=== PATIENT | female | born 1950 | race Caucasian/White ===

== ENCOUNTER 2018-02-25 12:19 | Inpatient (IN) ==
--- NOTE | 2018-02-25 12:54 | ED ---
HPI General Chief complaint: Urogenital-Female Stated complaint: Urinary Complaint Time Seen by Provider: 02/25/18 12:38 History of Present Illness HPI narrative: 67-year-old female with history of hypertension, diabetes, presents for evaluation. Patient is from [place]. 5 days ago she saw her primary care physician and she had her a prescription for lisinopril/ hydrochlorothiazide changed to olmesartan/hydrochlorothiazide because she had developed a chronic cough secondary to the lisinopril which she has been on for the past 2 years. Over the past few days she has been checking her blood pressure and initially after starting this new medication it was low ranging from 80/60 to 90/60. This was an asymptomatic hypotension. She was having no dizziness or lightheadedness. She reports that since yesterday morning she has been unable to make more than a small dribble of urine. She has also had some nausea. She is concerned that these are side effects of her new arb prescription. Symptoms are moderate. She is denying any chest pain, shortness of breath, dizziness, lightheadedness, abdominal pain, flank pain, fevers, chills, dysuria. No other complaints. Related Data Home Medications Medication Instructions Recorded Confirmed amlodipine 5 mg PO DAILY 02/25/18 02/25/18 atorvastatin 40 mg PO DAILY 02/25/18 02/25/18 ergocalciferol (vitamin D2) 50,000 unit PO QWEEK 02/25/18 02/25/18 [Vitamin D2] escitalopram oxalate 10 mg PO DAILY 02/25/18 02/25/18 metformin 2,000 mg PO QPM 02/25/18 02/25/18 olmesartan-hydrochlorothiazide 1 tab PO DAILY 02/25/18 02/25/18 Allergies Allergy/AdvReac Type Severity Reaction Status Date / Time amoxicillin [From Trimox] Allergy Rash Verified 02/25/18 12:45 Review of Systems ROS: all other systems reviewed are negative [facility] Medical History Medical History Depression (Acute) Diabetes (Acute) HTN (hypertension) (Acute) Hypercholesterolemia (Acute) Surgical History Surgical History History of ankle surgery (Acute) Hx of cholecystectomy (Acute) Hx of tonsillectomy (Acute) Social History Social History Substance History: No History of Abuse Smoking Status: Never smoker How Often Do You Have a Drink Containing Alcohol: Monthly or less Recent Travel in [facility] within the Last 8 Weeks: Yes Recent Out of Country Travel within the Last 8 Weeks: No Immunization History Tetanus Immunization: Unsure Exam Narrative Exam Narrative: GENERAL: Well-developed well-nourished female no acute distress SKIN: Warm and dry. HEAD: Atraumatic. Normocephalic. EYES: Pupils equal and round. No scleral icterus. No injection or drainage. ENT: No nasal bleeding or discharge. Mucous membranes pink and moist. NECK: Trachea midline. No JVD. CARDIOVASCULAR: Regular rate and rhythm. No murmur appreciated. RESPIRATORY: No accessory muscle use. Clear to auscultation. Breath sounds equal bilaterally. GASTROINTESTINAL: Abdomen soft, non-tender, nondistended. Hepatic and splenic margins not palpable. MUSCULOSKELETAL: No obvious deformities. No clubbing. No cyanosis. No edema. NEUROLOGICAL: Awake and alert. No obvious cranial nerve deficits. Motor grossly within normal limits. Normal speech. PSYCHIATRIC: Appropriate mood and affect; insight and judgment normal. Course Initial Documented Vital Signs Temperature 98.3 F 02/25/18 12:28 Pulse Rate 82 02/25/18 12:28 Respiratory Rate 14 02/25/18 12:28 Blood Pressure 109/64 02/25/18 12:28 Pulse Oximetry 94 L 02/25/18 12:28 Last Documented Vital Signs Temperature 98.3 F 02/25/18 12:28 Pulse Rate 82 02/25/18 12:28 Respiratory Rate 14 02/25/18 12:28 Blood Pressure 109/64 02/25/18 12:28 Pulse Oximetry 94 L 02/25/18 12:28 Medical Decision Making EUGENE Attestation EUGENE supervised visit: Yes Attestation: I, Dr. Smith, have reviewed the advance practice practitioner's documentation and am in agreement, met with the patient face to face, made the diagnosis, and the medical decision making was done by me. *My assessment and Findings: Patient is a 67-year-old female, here on vacation, who presents with complaint of decreased urine output after having her antihypertensives changed recently. She appears well and does not have any abdominal/flank pain. Bladder scan revealed that she was not retaining urine. Labs reveal an acute kidney injury with a slightly elevated BUN. She has been given 1 L normal saline bolus to see how she responds to this. She has been admitted for further evaluation and management. MDM Narrative Medical decision making narrative: An IV was established, the patient was given Zofran, lab work, urinalysis was obtained. According to the nurse the patient only made a small amount of urine for the sample. Postvoid residual was obtained revealing only 54 mL of urine in the bladder. Lab work is been reviewed. GFR is 21, BUN is 47, creatinine is 2.32, she has no history of renal dysfunction, this appears to be an acute kidney injury, IV fluid bolus has been initiated. The patient will be admitted for further treatment. Medical Screen Exam Complete: Yes Emergency Medical Condition: Yes Differential Diagnosis Differential Diagnosis: Acute kidney injury, urinary retention, cystitis, medication side effect Lab Data Result diagrams: 02/25/18 13:00 02/25/18 13:00 Lab Results 02/25/18 02/25/18 02/25/18 Range/Units 13:00 13:00 13:05 WBC 10.7 (4.0-11.0) th/mm3 RBC 4.70 (4.00-5.30) mil/mm3 Hgb 14.2 (11.6-15.3) gm/dL Hct 41.2 (35.0-46.0) % MCV 87.5 (80.0-100.0) fL MCH 30.3 (27.0-34.0) pg MCHC 34.6 (32.0-36.0) % RDW 14.2 (11.6-17.2) % Plt Count 214 (150-450) th/mm3 MPV 8.8 (7.0-11.0) fL Neut % (Auto) 79.0 H (16.0-70.0) % Lymph % (Auto) 10.7 (9.0-44.0) % [place] % (Auto) 8.4 H (0.0-8.0) % Eos % (Auto) 0.7 (0.0-4.0) % Baso % (Auto) 1.2 (0.0-2.0) % Neut # (Auto) 8.4 H (1.8-7.7) th/mm3 Lymph # (Auto) 1.1 (1.0-4.8) th/mm3 [place] # (Auto) 0.9 (0.0-0.9) th/mm3 Eos # (Auto) 0.1 (0.0-0.4) th/mm3 Baso # (Auto) 0.1 (0.0-0.2) th/mm3 WBC Differential . Differential Comment Auto diff final Sodium 140 (136-145) meq/L Potassium 4.1 (3.5-5.1) meq/L Chloride 104 (98-107) meq/L Carbon Dioxide 24.6 (21.0-32.0) meq/L Anion Gap 11 (5-15) meq/L BUN 47 H (7-18) mg/dL Creatinine 2.32 H (0.50-1.00) mg/dL Estimated GFR 21 L (>89) mL/min Random Glucose 150 H (74-106) mg/dL Calcium 9.5 (8.5-10.1) mg/dL Magnesium 2.0 (1.5-2.5) mg/dL Urine Color Yellow (Yellw/Straw) Urine Clarity Clear (Clear) Urine pH 5.0 (5.0-8.5) Ur Specific [place] 1.024 (1.002-1.035) Urine Protein 30 H (Neg-Trace) mg/dL Urine Glucose (UA) Negative (Negative) mg/dL Urine Ketones Negative (Negative) mg/dL Urine Occult Blood Negative (Negative) Urine Nitrate Negative (Negative) Urine Bilirubin Negative (Negative) Urine Urobilinogen Less than 2 (Less than 2) mg/dL Ur Leukocyte Esterase Negative (Negative) Urine RBC Less than 1 (0-3) /hpf Urine WBC 2 (0-5) /hpf Ur Squamous Epith Cells <1 (0-5) /hpf Hyaline Casts 6 (0-3) /lpf Granular Casts 15 (None) /lpf Urine Mucus Few H (Occasional) /lpf Micro UA Comment Culture not ind Ur Microscopic Review Not Reportable Urine Culture Comments Culture not ind Discharge Plan Discharge Disposition Patient Disposition: ED Admit(ED Internal Use Only) Discharge Condition Condition: Stable Discharge Order Discharge Orders: ED Use Only Admit Order (Routine); Ordered 02/25/18 Ordered By: Jose Martinez Discharge Details Diagnosis: Acute kidney injury Physicians Team ED Provider: Veronica Smith ED Midlevel Provider: Jose Martinez Primary Care Provider: UNKNOWN, Attending Provider: Carley Treviño Status ED Status: Admitted Patient
[2018-02-25 13:30] LABS: Baso # (Auto) 0.1 th/mm3 (0.0-0.2); Baso % (Auto) 1.2 % (0.0-2.0); Eos # (Auto) 0.1 th/mm3 (0.0-0.4); Eos % (Auto) 0.7 % (0.0-4.0); Hematocrit 41.2 % (35.0-46.0); Hemoglobin 14.2 gm/dL (11.6-15.3); Lymph # (Auto) 1.1 th/mm3 (1.0-4.8); Lymph % (Auto) 10.7 % (9.0-44.0); Mean Corpuscular HGB Conc 34.6 % (32.0-36.0); Mean Corpuscular Hemoglobin 30.3 pg (27.0-34.0); Mean Corpuscular Volume 87.5 fL (80.0-100.0); Mean Platelet Volume 8.8 fL (7.0-11.0); Mono # (Auto) 0.9 th/mm3 (0.0-0.9); Mono % (Auto) 8.4 % (0.0-8.0); Neut # (Auto) 8.4 th/mm3 (1.8-7.7); Platelet Count 214 th/mm3 (150-450); Red Cell Distribution Width 14.2 % (11.6-17.2); White Blood Count 10.7 th/mm3 (4.0-11.0)
[2018-02-25 13:32] LABS: Bilirubin,Urine Negative (Negative); Clarity,Urine Clear (Clear); Color,Urine Yellow (Yellw/Straw); Glucose,Urine (UA) Negative (Negative); Hyaline Casts,Urine 6 /lpf (0-3); Leukocyte Esterase,Urine Negative (Negative); Mucus,Urine Few /lpf (Occasional); Nitrite,Urine Negative (Negative); Specific Gravity,Urine 1.024 (1.002-1.035); Squamous Epithelial Cell,Urine <1 /hpf (0-5)
[2018-02-25 13:46] LABS: Calcium 9.5 mg/dL (8.5-10.1); Carbon Dioxide 24.6 meq/L (21.0-32.0); Potassium 4.1 meq/L (3.5-5.1)
[2018-02-25] MEDS ORDERED: Sod Chloride 0.9% Inj 1,000 ML IV.SIG SCH (14:00)
[2018-02-25] MEDS ORDERED: Dextrose 50% in Water 50 ML Vial IV.PUSH PRN (14:14)
--- NOTE | 2018-02-25 14:19 | P.HPIM ---
History of Present Illness Primary Care Physician: UNKNOWN Chief Complaint: ' I'm not able to urinate'. History of Present Illness: patient is a 67 y/o female with history of hypertension, diabetes who presented to ER after she hasn't been able to void the past 24 hrs. she says that she was on lisnopril/HCTZ - this was changed to Olmesartan/HCTZ recently because of the cough. she says that she's been on the train from [place]. she says that she hasn't voided since yesterday morning- except for ' just a few drops '. she says that she never had a problem with urination in the past. she had some nausea earlier which has resolved. she denies any abdominal pain and doesn't report any dysuria or hematuria. she denies any sob. Inpatient Certification: I certify that the inpatient services were ordered in accordance with Medicare regulations governing the order. This includes certification that hospital inpatient services are reasonable and necessary and in the case of services not specified as inpatient-only under 42 CFR 419.22(n), that they are appropriately provided as inpatient services in accordance to with the 2-midnight benchmark under 43 CFR 412.3(e) Review of Systems All other systems reviewed negative except as stated in HPI PMFSH - History History Provided By: Patient - Medical History Medical History: Medical History (Last Reviewed 02/25/18 @ 14:26 by Carley Treviño MD) Depression Diabetes HTN (hypertension) Hypercholesterolemia - Surgical History Surgical History: Surgical History (Last Reviewed 02/25/18 @ 14:26 by Carley Treviño MD) History of ankle surgery Hx of cholecystectomy Hx of tonsillectomy - Family History Family History: Family History (Last Updated 02/25/18 @ 14:26 by Carley Treviño MD) Other CHF (congestive heart failure) - Tobacco History Smoking Status: Never smoker - Alcohol History How Often Do You Have a Drink Containing Alcohol: Monthly or less - Substance Use History Substance History: No History of Abuse - Travel History Recent Travel in the [place] Within the Last 8 Weeks: Yes Recent Travel Out of the Country Within the Last 8 Weeks: No - Immunization History Tetanus Immunization: Unsure Medications and Allergies Active Medications: Active Medications Dextrose (D50w Vial) 50 ml IV.PUSH UNSCH PRN PRN Reason: PER HYPOGLYCEMIA PROTOCOL Glucagon (Glucagon Inj) 1 mg OTHER PRN PRN PRN Reason: for Hypoglycemia Protocol Heparin Sodium (Porcine) (Heparin Inj) 5,000 units SQ Q12HR DEJA Sodium Chloride (Ns Inj) 1,000 mls @ 1,000 mls/hr IV.SIG BOLUS DEJA Stop: 02/25/18 14:59 Sodium Chloride (Ns Inj) 1,000 mls @ 125 mls/hr IV.CONT .Q8H DEJA Insulin Aspart (Novolog Insulin Correctional Sugar Inj) 0 unit SQ ACHS DEJA; Protocol Sodium Chloride (Ns Flush) 2 ml IV.FLUSH PRN PRN PRN Reason: FLUSH AFTER USING IV ACCESS Last Admin: 02/25/18 13:13 Dose: 2 ml Allergies Allergy/AdvReac Type Severity Reaction Status Date / Time amoxicillin [From Trimox] Allergy Rash Verified 02/25/18 12:45 Home Medications Medication Instructions Recorded Confirmed Type amlodipine 5 mg PO DAILY 02/25/18 02/25/18 History atorvastatin 40 mg PO DAILY 02/25/18 02/25/18 History ergocalciferol (vitamin D2) 50,000 unit PO QWEEK 02/25/18 02/25/18 History [Vitamin D2] escitalopram oxalate 10 mg PO DAILY 02/25/18 02/25/18 History metformin 2,000 mg PO QPM 02/25/18 02/25/18 History olmesartan-hydrochlorothiazide 1 tab PO DAILY 02/25/18 02/25/18 History Exam Vital signs: Vital Signs 02/25/18 12:28 Temperature 98.3 F Pulse Rate 82 Respiratory Rate 14 Blood Pressure 109/64 Pulse Oximetry 94 L Intake & Output 02/24/18 02/25/18 02/25/18 18:59 06:59 18:59 Weight 117.934 kg - Constitutional no acute distress - Routine Neck Exam Present: supple - Routine Respiratory Exam Present: CTA bilaterally - Routine Cardiovascular Exam Present: RRR - Routine Abdominal Exam Present: soft - Routine Extremities Exam Comments: no pedal edema. - Routine Neurological Exam Present: alert, oriented X3 Results - Labs CBC & Chem 7: 02/25/18 13:00 02/25/18 13:00 Labs: Short CBC 02/25/18 Range/Units 13:00 WBC 10.7 (4.0-11.0) th/mm3 Hgb 14.2 (11.6-15.3) gm/dL Hct 41.2 (35.0-46.0) % Plt Count 214 (150-450) th/mm3 BMP 02/25/18 13:00 Sodium 140 Potassium 4.1 Chloride 104 Carbon Dioxide 24.6 BUN 47 H Creatinine 2.32 H Calcium 9.5 Urine 02/25/18 Range/Units 13:05 Urine Color Yellow (Yellw/Straw) Urine Clarity Clear (Clear) Urine pH 5.0 (5.0-8.5) Ur Specific [place] 1.024 (1.002-1.035) Urine Protein 30 H (Neg-Trace) mg/dL Urine Glucose (UA) Negative (Negative) mg/dL Caprini VTE Risk Assessment Caprini VTE Risk Assessment: Moderate/High Risk (score >= 2) Caprini Risk Assessment Model: Point Value = 1 Point Value = 2 Point Value = 3 Point Value = 5 Age 41-60 Minor surgery BMI > 25 kg/m2 Swollen legs Varicose veins or History of unexplained or recurrent spontaneous Oral contraceptives or hormone replacement Sepsis (< 1 month) Serious lung disease, including pneumonia (< 1 month) Abnormal pulmonary function Acute myocardial infarction Congestive heart failure (< 1 month) History of inflammatory bowel disease Medical patient at bed rest Age 61-74 Arthroscopic surgery Major open surgery (> 45 min) Laparoscopic surgery (> 45 min) Malignancy Confined to bed (> 72 hours) Immobilizing plaster cast Central venous access Age >= 75 History of VTE Family history of VTE Factor V Leiden Prothrombin [id number] Lupus anticoagulant Anticardiolipin antibodies Elevated serum homocysteine Heparin-induced thrombocytopenia Other congenital or acquired thrombophilia Stroke (< 1 month) Elective arthroplasty Hip, pelvis, or leg fracture Acute spinal cord injury (< 1 month) Prophylaxis Regimen: Total Risk Factor Score Risk Level Prophylaxis Regimen 0-1 Low Early ambulation 2 Moderate Order ONE of the following: *Sequential Compression Device (SCD) *Heparin 5000 units SQ BID 3-4 Higher Order ONE of the following medications: *Heparin 5000 units SQ TID *Enoxaparin/Lovenox 40 mg SQ daily (WT < 150 kg, CrCl > 30 mL/min) *Enoxaparin/Lovenox 30 mg SQ daily (WT < 150 kg, CrCl > 10-29 mL/min) *Enoxaparin/Lovenox 30 mg SQ BID (WT < 150 kg, CrCl > 30 mL/min) AND/OR *Sequential Compression Device (SCD) 5 or more Highest Order ONE of the following medications: *Heparin 5000 units SQ TID (Preferred with Epidurals) *Enoxaparin/Lovenox 40 mg SQ daily (WT < 150 kg, CrCl > 30 mL/min) *Enoxaparin/Lovenox 30 mg SQ daily (WT < 150 kg, CrCl > 10-29 mL/min) *Enoxaparin/Lovenox 30 mg SQ BID (WT < 150 kg, CrCl > 30 mL/min) AND *Sequential Compression Device (SCD) Assessment and Plan - Plan A/P - Acute Kidney Injury/Oliguria; will start on IV fluid- place the alcantar cath for accurate I/O monitoring- check kidney US and CPK level. repeat BMP in am - will consider Nephrology evaluation if no improvement- pending kidney US. patient has been recently switched to Olmesartan/HCTZ. -Hypertension; BP stable- will hold home BP meds for now. -Diabetes mellitus; hold Metformin- start on accu-check with SSI -Dyslipidemia; hold statin-pending CPK level. -DVT prophylaxis; subq Heparin Discussed Condition With: ER mid-level and the patient. Discharge Planning: home when stable.
[2018-02-25] MEDS: Sod Chloride 0.9% Inj 1,000 ML IV.CONT SCH (16:58)
[2018-02-25] MEDS: Insulin NovoLOG Aspart Correctional Sugar Inj SQ SCH ×2 (17:05→20:38)
[2018-02-25] MEDS: Heparin - SQ 10,000 UNITS/ML Vial SQ SCH (20:37)
[2018-02-26] MEDS: Sod Chloride 0.9% Inj 1,000 ML IV.CONT SCH ×3 (00:06→16:37)
[2018-02-26 07:37] LABS: Calcium 8.3 mg/dL (8.5-10.1); Carbon Dioxide 26.6 meq/L (21.0-32.0)
[2018-02-26] MEDS: Heparin - SQ 10,000 UNITS/ML Vial SQ SCH ×2 (08:36→21:22)
[2018-02-26] MEDS: Insulin NovoLOG Aspart Correctional Sugar Inj SQ SCH ×4 (08:37→21:24)
--- NOTE | 2018-02-26 09:06 | US ---
EXAM DATE: 02/26/2018 8:47 AM EST AGE/SEX: 67 years / Female INDICATIONS: Increased lab values. CLINICAL DATA: This is the patient's initial encounter. Patient reports that signs and symptoms have been present for 1 day and indicates a pain score of 0/10. MEDICAL/SURGICAL HISTORY: Hypertension. Diabetes. Depression. Hypercholesterolemia. Cholecyst ectomy. Tonsillectomy. Ankle surgery. COMPARISON: No prior exams available for comparison. MEASUREMENTS: Right Kidney:__11.0 x 4.5 x 5.0 cm Left Kidney:__12.5 x 4.6 x 6.0 cm FINDINGS: Right Kidney: Cortical thickness and echogenicity are well-maintained. A 1.7 cm cyst is identified in the upper pole. There is no evidence of hydronephrosis or suspicious renal masses. Left Kidney: Cortical thickness and echogenicity are well-maintained. There are 2 cysts identified. A 1.2 cm cyst is identified in the upper pole and a 2.2 cm cyst in the lower pole. There is no evidenc e of hydronephrosis or suspicious renal masses. Bladder: Shafer catheter is present. Bladder decompressed. Other: None. CONCLUSION: 1. Bilateral renal cysts. 2. Otherwise normal sonographic appearance the kidneys without evidence of hydronephrosis or signifi cant renal cortical scarring. Electronically signed by: Nathan Garza MD 02/26/2018 9:05 AM EST
--- NOTE | 2018-02-26 10:48 | P.PNIM ---
Subjective Interval history: f/u; BEKAH in no acute distress. looks fairly comfortable. good urine output. Physical Exam Vital signs: Vital Signs 02/25/18 12:28 02/25/18 16:00 02/25/18 20:00 Temperature 98.3 F 97.6 F 97.5 F L Pulse Rate 82 77 77 Respiratory Rate 14 18 18 Blood Pressure 109/64 142/68 H 104/50 L Pulse Oximetry 94 L 97 95 02/26/18 00:00 02/26/18 08:00 Temperature 97.5 F L 97.7 F Pulse Rate 76 71 Respiratory Rate 18 15 Blood Pressure 99/49 L 102/51 L Pulse Oximetry 95 92 L Intake & Output 02/25/18 02/26/18 02/26/18 18:59 06:59 18:59 Intake Total 1000 / 1000 1480 / 1480 908.8 / 908.8 Output Total 1050 / 1050 Balance 1000 / 1000 430 / 430 908.8 / 908.8 Weight 117.934 kg 124.7 kg Intake: IV 1000 / 1000 1000 / 1000 908.8 / 908.8 NS Inj 1,000 ML @ 125 mls/hr IV 1000 / 1000 908.8 / 908.8 .CONT .Q8H DEJA Rx#:[id number] NS Inj 1,000 ML @ 1000 mls/hr 1000 / 1000 IV.SIG BOLUS DEJA Rx#:[id number] Oral 480 / 480 Output: Urine Amount (Catheter) 1050 / 1050 Indwelling Urethral Catheter 1050 / 1050 Other: Date of Last Bowel Movement 02/25/18 02/25/18 Weight On Admission 117.934 kg - Constitutional no acute distress - Routine Respiratory Exam Present: CTA bilaterally - Routine Cardiovascular Exam Present: RRR - Routine Abdominal Exam Present: soft - Routine Extremities Exam Comments: no pedal edema. - Routine Neurological Exam Present: alert, oriented X3 - Urinary Catheter Management Indwelling Urethral Catheter Cath placed during this visit: yes Reason for continuing: Hourly intake/output Insertion date: 02/25/18 Insertion time: 16:20 Results - Labs CBC & Chem 7: 02/25/18 13:00 02/26/18 06:39 Laboratory Results - last 24 hr 02/25/18 02/25/18 02/25/18 13:00 13:00 13:00 WBC 10.7 RBC 4.70 Hgb 14.2 Hct 41.2 MCV 87.5 MCH 30.3 MCHC 34.6 RDW 14.2 Plt Count 214 MPV 8.8 Neut % (Auto) 79.0 H Lymph % (Auto) 10.7 [place] % (Auto) 8.4 H Eos % (Auto) 0.7 Baso % (Auto) 1.2 Neut # (Auto) 8.4 H Lymph # (Auto) 1.1 [place] # (Auto) 0.9 Eos # (Auto) 0.1 Baso # (Auto) 0.1 WBC Differential . Differential Comment Auto diff final Sodium 140 Potassium 4.1 Chloride 104 Carbon Dioxide 24.6 Anion Gap 11 BUN 47 H Creatinine 2.32 H Estimated GFR 21 L POC Glucose Random Glucose 150 H Calcium 9.5 Magnesium 2.0 Total Creatine Kinase 82 Urine Color Urine Clarity Urine pH Ur Specific [place] Urine Protein Urine Glucose (UA) Urine Ketones Urine Occult Blood Urine Nitrate Urine Bilirubin Urine Urobilinogen Ur Leukocyte Esterase Urine RBC Urine WBC Ur Squamous Epith Cells Hyaline Casts Granular Casts Urine Mucus Micro UA Comment Ur Microscopic Review Urine Culture Comments 02/25/18 02/25/18 02/26/18 13:05 20:35 06:39 WBC RBC Hgb Hct MCV MCH MCHC RDW Plt Count MPV Neut % (Auto) Lymph % (Auto) [place] % (Auto) Eos % (Auto) Baso % (Auto) Neut # (Auto) Lymph # (Auto) [place] # (Auto) Eos # (Auto) Baso # (Auto) WBC Differential Differential Comment Sodium 141 Potassium 4.0 Chloride 110 H Carbon Dioxide 26.6 Anion Gap 4 L BUN 32 H Creatinine 1.38 H Estimated GFR 38 L POC Glucose 112 H Random Glucose 134 H Calcium 8.3 L D Magnesium Total Creatine Kinase Urine Color Yellow Urine Clarity Clear Urine pH 5.0 Ur Specific [place] 1.024 Urine Protein 30 H Urine Glucose (UA) Negative Urine Ketones Negative Urine Occult Blood Negative Urine Nitrate Negative Urine Bilirubin Negative Urine Urobilinogen Less than 2 Ur Leukocyte Esterase Negative Urine RBC Less than 1 Urine WBC 2 Ur Squamous Epith Cells <1 Hyaline Casts 6 Granular Casts 15 Urine Mucus Few H Micro UA Comment Culture not ind Ur Microscopic Review Not Reportable Urine Culture Comments Culture not ind - Imaging Impressions Abdomen/Bladder Ultrasound 02/26/18 00:00 CONCLUSION: 1. Bilateral renal cysts. 2. Otherwise normal sonographic appearance the kidneys without evidence of hydronephrosis or significant renal cortical scarring. Assessment and Plan - Plan A/P - Acute Kidney Injury/Oliguria; US kidneys with renal cysts-otherwise with no hydronephrosis. improved- continue on IV fluid- remove the alcantar cath- repeat BMP in am - patient has been recently switched to Olmesartan/HCTZ. -Hypertension; BP stable- will hold home BP meds for now. -Diabetes mellitus; hold Metformin- started on accu-check with SSI -Dyslipidemia; resume statin upon discharge. -DVT prophylaxis; subq Heparin Discharge Planning: home tomorrow if stable.
[2018-02-26] MEDS: Acetaminophen 325 MG Tablet PO PRN (17:43)
[2018-02-27] MEDS: Sod Chloride 0.9% Inj 1,000 ML IV.CONT SCH (05:23)
[2018-02-27] MEDS: Insulin NovoLOG Aspart Correctional Sugar Inj SQ SCH (07:13)
[2018-02-27] MEDS: Acetaminophen 325 MG Tablet PO PRN (07:45)
[2018-02-27 07:59] LABS: Calcium 8.2 mg/dL (8.5-10.1); Carbon Dioxide 27.7 meq/L (21.0-32.0); Potassium 4.5 meq/L (3.5-5.1)
[2018-02-27] MEDS: Heparin - SQ 10,000 UNITS/ML Vial SQ SCH (08:29)
--- NOTE | 2018-02-27 08:42 | P.PNIM ---
Subjective Interval history: f/u; BEKAH in no acute distress. could void with no problems since yesterday with good urine output. no new complaints. Physical Exam Vital signs: Vital Signs 02/26/18 12:00 02/26/18 16:00 02/26/18 20:00 Temperature 98.0 F 97.7 F 99.2 F Pulse Rate 66 67 69 Respiratory Rate 16 15 20 Blood Pressure 100/54 L 105/55 L 101/52 L Pulse Oximetry 93 L 93 L 98 02/27/18 00:00 02/27/18 04:00 Temperature 98.2 F 97.4 F L Pulse Rate 69 61 Respiratory Rate 18 18 Blood Pressure 111/56 L 110/61 Pulse Oximetry 98 96 Intake & Output 02/26/18 02/27/18 02/27/18 18:59 06:59 18:59 Intake Total 2803.8 / 2803.8 480 / 480 Output Total 1800 / 1800 1800 / 1800 Balance 1003.8 / 1003.8 -1320 / -1320 Weight 127 kg Intake: IV 1903.8 / 1903.8 NS Inj 1,000 ML @ 125 mls/hr IV 1903.8 / 1903.8 .CONT .Q8H DEJA Rx#:[id number] Oral 900 / 900 480 / 480 Output: Urine 850 / 850 1800 / 1800 Urine Amount (Catheter) 950 / 950 Indwelling Urethral Catheter 950 / 950 Other: Date of Last Bowel Movement 02/25/18 02/25/18 02/24/18 # Bowel Movements 1 - Constitutional no acute distress - Routine Respiratory Exam Present: CTA bilaterally - Routine Cardiovascular Exam Present: RRR - Routine Abdominal Exam Present: soft - Routine Extremities Exam Comments: minimal bilateral pedal edema. - Routine Neurological Exam Present: alert, oriented X3 - Urinary Catheter Management Indwelling Urethral Catheter Cath placed during this visit: yes, but has since been removed by the nurse Reason for continuing: Other continuation reason Insertion date: 02/25/18 Insertion time: 16:20 Removal date: 02/26/18 Removal time: 12:00 Results - Labs CBC & Chem 7: 02/25/18 13:00 02/27/18 04:54 Laboratory Results - last 24 hr 02/26/18 02/26/18 02/26/18 11:57 16:39 21:24 Sodium Potassium Chloride Carbon Dioxide Anion Gap BUN Creatinine Estimated GFR POC Glucose 118 H 121 H 176 H Random Glucose Calcium 02/27/18 02/27/18 04:54 07:08 Sodium 144 Potassium 4.5 Chloride 111 H Carbon Dioxide 27.7 Anion Gap 5 BUN 17 Creatinine 0.96 Estimated GFR 58 L POC Glucose 119 H Random Glucose 119 H Calcium 8.2 L - Imaging Impressions Abdomen/Bladder Ultrasound 02/26/18 00:00 CONCLUSION: 1. Bilateral renal cysts. 2. Otherwise normal sonographic appearance the kidneys without evidence of hydronephrosis or significant renal cortical scarring. - Procedures none. Assessment and Plan - Plan A/P - Acute Kidney Injury/Oliguria; has resolved. US kidneys with renal cysts-otherwise with no hydronephrosis. patient has been recently switched to Olmesartan /HCTZ. -Hypertension; BP stable- will hold home BP meds for now. the patient was advised to keep monitoring her BP at home and call the PCP if she's noticed an upward trend. -Diabetes mellitus; resume Metformin- -Dyslipidemia; resume statin upon discharge. -DVT prophylaxis; subq Heparin Discharge Planning: dc home today. see med list. f/u; pcp. d/w the patient.
--- NOTE | 2018-02-27 08:42 | P.DS ---
Date of admission: 02/25/18 14:08 Primary care physician: UNKNOWN Brief History from admission: patient is a 67 y/o female with history of hypertension, diabetes who presented to ER after she hasn't been able to void the past 24 hrs. she says that she was on lisnopril/HCTZ - this was changed to Olmesartan/HCTZ recently because of the cough. she says that she's been on the train from [place]. she says that she hasn't voided since yesterday morning- except for ' just a few drops '. she says that she never had a problem with urination in the past. she had some nausea earlier which has resolved. she denies any abdominal pain and doesn't report any dysuria or hematuria. she denies any sob. DS: Summary Hospital Course: - Acute Kidney Injury/Oliguria; has resolved. US kidneys with renal cysts-otherwise with no hydronephrosis. patient has been recently switched to Olmesartan /HCTZ. -Hypertension; BP stable- will hold home BP meds for now. the patient was advised to keep monitoring her BP at home and call the PCP if she's noticed an upward trend. -Diabetes mellitus; resume Metformin- -Dyslipidemia; resume statin upon discharge. - Time Spent with Patient Total time spent providing and/or coordinating discharge services: Less than 30 minutes - Quality: VTE Deep Vein Thrombosis/Pulmonary Embolism Present on Admission: No Exam Vital signs: Vital Signs 02/26/18 12:00 02/26/18 16:00 02/26/18 20:00 Temperature 98.0 F 97.7 F 99.2 F Pulse Rate 66 67 69 Respiratory Rate 16 15 20 Blood Pressure 100/54 L 105/55 L 101/52 L Pulse Oximetry 93 L 93 L 98 02/27/18 00:00 02/27/18 04:00 Temperature 98.2 F 97.4 F L Pulse Rate 69 61 Respiratory Rate 18 18 Blood Pressure 111/56 L 110/61 Pulse Oximetry 98 96 Intake & Output 02/26/18 02/27/18 02/27/18 18:59 06:59 18:59 Intake Total 2803.8 / 2803.8 480 / 480 Output Total 1800 / 1800 1800 / 1800 Balance 1003.8 / 1003.8 -1320 / -1320 Weight 127 kg Intake: IV 1903.8 / 1903.8 NS Inj 1,000 ML @ 125 mls/hr IV 1903.8 / 1903.8 .CONT .Q8H DEJA Rx#:[id number] Oral 900 / 900 480 / 480 Output: Urine 850 / 850 1800 / 1800 Urine Amount (Catheter) 950 / 950 Indwelling Urethral Catheter 950 / 950 Other: Date of Last Bowel Movement 02/25/18 02/25/18 02/24/18 # Bowel Movements 1 - Constitutional no acute distress - Routine Respiratory Exam Present: CTA bilaterally - Routine Cardiovascular Exam Present: RRR - Routine Abdominal Exam Present: soft - Routine Extremities Exam Comments: minimal bilateral pedal edema. - Routine Neurological Exam Present: alert, oriented X3 Results Procedures completed during hospitalization: none. Labs on day of discharge: Labs from last 24 hours 02/27/18 02/27/18 02/26/18 07:08 04:54 21:24 Sodium 144 Potassium 4.5 Chloride 111 H Carbon Dioxide 27.7 Anion Gap 5 BUN 17 Creatinine 0.96 Estimated GFR 58 L POC Glucose 119 H 176 H Random Glucose 119 H Calcium 8.2 L 02/26/18 02/26/18 16:39 11:57 Sodium Potassium Chloride Carbon Dioxide Anion Gap BUN Creatinine Estimated GFR POC Glucose 121 H 118 H Random Glucose Calcium - Impressions ITS Impressions Abdomen/Bladder Ultrasound 02/26/18 00:00 CONCLUSION: 1. Bilateral renal cysts. 2. Otherwise normal sonographic appearance the kidneys without evidence of hydronephrosis or significant renal cortical scarring. Discharge Plan - Discharge Disposition Patient Disposition: 01 Discharge Home - Discharge Condition Condition: Stable - Physicians Team Primary Care Provider: UNKNOWN, Attending Provider: Carley Treviño
== END 2018-02-27 09:58 | disposition home or self-care (01) ==
LOC: NEPE 12:19 → NEDA 14:08 → N07 16:58
PROVIDERS: ADMIT Internal Medicine; ATTEND Internal Medicine